=== PATIENT | female | born 1985 ===

== ENCOUNTER 2020-05-12 07:00 | Outpatient (CLI) | payer MEDICAID ==
[2020-05-12 16:35] LABS: BILIRUBIN,URINE NEGATIVE (NEGATIVE); GLUCOSE, URINE (UA) NEGATIVE (NEGATIVE); KETONES,URINE (UA) NEGATIVE (NEGATIVE); LEUKOCYTE ESTERASE, URINE NEGATIVE (NEGATIVE); NITRITE,URINE NEGATIVE (NEGATIVE); OCCULT BLOOD,URINE LARGE (NEGATIVE); PH,URINE 5.5 PH (5.0-7.5); PROTEIN,URINE NEGATIVE (NEGATIVE); UROBILINOGEN,URINE 0.2 (NORMAL) E.U./dL (NORMAL)
[2020-05-12 16:48] LABS: AMORPHOUS SEDIMENT,UR Few /LPF; BACTERIA,URINE Few /HPF (None Seen); CLARITY,URINE CLEAR (CLEAR); MUCUS,URINE Few Strands; SQUAMOUS EPITHELIAL CELL,UR MANY Squamous (<= Few)
[2020-05-12 16:49] LABS: CRYSTALS,URINE 6-10 Calcium Oxalate /LPF
== END 2020-05-12 23:59 | disposition home or self-care (01) ==
LOC: LAB.R 07:00
PROVIDERS: ATTEND Obstetrics & Gynecology
DX: R30.0 Dysuria (principal)
CPT/HCPCS: 81001; 87086

== ENCOUNTER 2020-05-23 15:31 | Outpatient (CLI) | payer MEDICAID ==
[2020-05-23 18:35] LABS: HGB - HEMOGLOBIN 12.2 g/dL (12.0-16.0); MEAN CORPUSCULAR HEMOGLOBIN 28.6 pg (27.0-31.0); MEAN CORPUSCULAR HGB CONC 30.7 g/dL (32.0-36.0); MEAN CORPUSCULAR VOLUME 93.2 fL (81.0-99.0); RED BLOOD COUNT 4.26 10^6/uL (4.20-5.40); RED CELL DISTRIBUTION WIDTH 12.7 % (12.0-15.0); WHITE BLOOD COUNT 6.2 x10^3/uL (4.8-10.8)
[2020-05-23 18:37] LABS: ALBUMIN 4.4 g/dL (3.2-5.5); ALBUMIN/GLOBULIN RATIO 1.7 (1.0-2.2); BILIRUBIN,TOTAL 0.5 mg/dL (0.2-1.0); CALCIUM 9.3 mg/dL (8.5-10.3); CREATININE 0.7 mg/dL (0.4-1.0)
[2020-05-24 12:17] LABS: HEPATITIS B SURFACE ANTIGEN NON-REACTIVE (NON-REACTIVE)
[2020-05-24 12:18] LABS: HEPATITIS C ANTIBODY NON-REACTIVE (NON-REACTIVE)
[2020-05-24 13:22] LABS: HIV AG/AB 4TH GEN NON-REACTIVE (NON-REACTIVE)
== END 2020-05-23 15:32 | disposition home or self-care (01) ==
LOC: LAB.N 15:31
PROVIDERS: ATTEND Obstetrics & Gynecology
DX: R53.81 Other malaise (principal); Z11.3 Encounter for screening for infections with a predominantly sexual mode of transmission
CPT/HCPCS: 36415; 80053; 81599; 82306; 82607; 84443; 85027; 86592; 86803; 87340; 87389

== ENCOUNTER 2020-05-26 16:29 | Emergency (ER) | payer MEDICAID ==
[2020-05-26 17:05] LABS: BILIRUBIN,URINE NEGATIVE (NEGATIVE); GLUCOSE, URINE (UA) NEGATIVE (NEGATIVE); KETONES,URINE (UA) NEGATIVE (NEGATIVE); LEUKOCYTE ESTERASE, URINE NEGATIVE (NEGATIVE); NITRITE,URINE NEGATIVE (NEGATIVE); OCCULT BLOOD,URINE MODERATE (NEGATIVE); PH,URINE 5.5 PH (5.0-7.5); PROTEIN,URINE TRACE mg/dL (NEGATIVE); UROBILINOGEN,URINE 0.2 (NORMAL) E.U./dL (NORMAL)
[2020-05-26 17:06] LABS: BASOPHILS # (AUTO) 0.1 10^3/uL (0.0-0.1); BASOPHILS % (AUTO) 0.3 %; EOSINOPHILS % (AUTO) 0.1 %; HGB - HEMOGLOBIN 13.4 g/dL (12.0-16.0); LYMPHOCYTES # (AUTO) 0.5 10^3/uL (1.5-3.5); LYMPHOCYTES % (AUTO) 2.4 %; MEAN CORPUSCULAR HEMOGLOBIN 28.6 pg (27.0-31.0); MEAN CORPUSCULAR HGB CONC 31.5 g/dL (32.0-36.0); MEAN CORPUSCULAR VOLUME 90.8 fL (81.0-99.0); MEAN PLATELET VOLUME 10.4 fL (7.9-10.8); MONOCYTES # (AUTO) 0.8 10^3/uL (0.0-1.0); MONOCYTES % (AUTO) 3.9 %; NEUTROPHILS # (AUTO) 18.3 10^3/uL (1.5-6.6); PLT - PLATELET COUNT 322 10^3/uL (130-450); RED BLOOD COUNT 4.69 10^6/uL (4.20-5.40); RED CELL DISTRIBUTION WIDTH 12.3 % (12.0-15.0); WHITE BLOOD COUNT 19.7 x10^3/uL (4.8-10.8)
[2020-05-26 17:07] LABS: HCG UR QUAL NEGATIVE
[2020-05-26] MEDS ORDERED: LOPERAMIDE 2 MG CAPSULE PO STA (17:07)
[2020-05-26] MEDS ORDERED: HYDROmorphone 1 MG/ML CARPUJECT IVP STA (17:07)
[2020-05-26] MEDS ORDERED: SODIUM CHLORIDE 0.9% 1,000 ML IV STA (17:07)
[2020-05-26] MEDS ORDERED: ONDANSETRON 4 MG/2 ML VIAL IVP STA (17:07)
[2020-05-26 17:08] LABS: CLARITY,URINE CLOUDY (CLEAR)
--- NOTE | 2020-05-26 17:08 | ED Physician Documentation ---
PD HPI ABD PAIN - Stated complaint Stated Complaint: NAUSEA, DIARRHEA, VOMITING - Chief complaint Chief Complaint: Abd Pain - History obtained from History obtained from: Patient - Additional information Additional information: 35yo woman who had what sounds like colitis about a year ago treated conservatively. Lost to follow-up and never had a colonoscopy. 5 days ago started amoxicillin and around the same time took Plan B after sexual activity during ovulation. Over the last day or 2 has developed profuse bloody diarrhea with lower abdominal pain. No fevers but she has had chills. Review of Systems Ten Systems: 10 systems reviewed and negative Constitutional: reports: Chills Ears: reports: Reviewed and negative Throat: reports: Reviewed and negative GI: reports: Abdominal Pain, Nausea, Diarrhea, Bloody / black stool PD PAST MEDICAL HISTORY - Present Medications Home Medications: Ambulatory Orders Medication Instructions Recorded Confirmed Dicyclomine [Bentyl] 1 - 2 tab PO QID PRN #20 capsule 05/26/20 HYDROcod/ACETAM 5/325 [[place] 5/325] 1 - 2 tab PO Q6H PRN #7 tablet 05/26/20 Ondansetron Odt [Zofran] 4 mg TL Q6H PRN #10 tablet 05/26/20 Vancomycin [Vancocin] 250 mg PO QID #80 capsule 05/26/20 - Allergies Allergies/Adverse Reactions: Allergies Allergy/AdvReac Type Severity Reaction Status Date / Time amoxicillin AdvReac Emesis Verified 05/26/20 16:45 PD ED PE NORMAL - Vitals Vital signs reviewed: Yes - General General: Alert and oriented X 3, No acute distress - HEENT HEENT: PERRL, EOMI - Neck Neck: Supple, no meningeal sign, No bony TTP - Cardiac Cardiac: RRR, No murmur - Respiratory Respiratory: No respiratory distress, Clear bilaterally - Abdomen Abdomen: Normal bowel sounds, Soft, Non tender - Back Back: No CVA TTP, No spinal TTP - Derm Derm: Normal color, Warm and dry - Extremities Extremities: No edema, No calf tenderness / cord - Neuro Neuro: Alert and oriented X 3, Normal speech Results - Vitals Vitals: Vital Signs - 24 hr 05/26/20 05/26/20 16:36 19:54 Temperature 36.3 C L Heart Rate 114 H 90 Respiratory 17 18 Rate Blood Pressure 140/76 H 137/78 H O2 Saturation 100 100 Oxygen O2 Source Room air - Labs Labs: Microbiology 05/26/20 16:50 Occult Blood - Final Stool Laboratory Tests 05/26/20 05/26/20 05/26/20 16:50 16:50 17:01 WBC 19.7 H RBC 4.69 Hgb 13.4 Hct 42.6 MCV 90.8 MCH 28.6 MCHC 31.5 L RDW 12.3 Plt Count 322 MPV 10.4 Neut # (Auto) 18.3 H Lymph # (Auto) 0.5 L Page # (Auto) 0.8 Eos # (Auto) 0.0 Baso # (Auto) 0.1 Absolute Nucleated RBC 0.00 Nucleated RBC % 0.0 Sodium Potassium Chloride Carbon Dioxide Anion Gap BUN Creatinine Estimated GFR (MDRD) Glucose Calcium Total Bilirubin AST ALT Alkaline Phosphatase Total Protein Albumin Globulin Albumin/Globulin Ratio Lipase Urine Color YELLOW Urine Clarity CLOUDY Urine pH 5.5 Ur Specific [place] >=1.030 H Urine Protein TRACE Urine Glucose (UA) NEGATIVE Urine Ketones NEGATIVE Urine Occult Blood MODERATE H Urine Nitrite NEGATIVE Urine Bilirubin NEGATIVE Urine Urobilinogen 0.2 (NORMAL) Ur Leukocyte Esterase NEGATIVE Urine RBC 6-10 H Urine WBC 0-3 Ur Squamous Epith Cells MOD Squamous H Amorphous Sediment Moderate Urine Bacteria Moderate H Ur Microscopic Review INDICATED Urine Culture Comments NOT INDICATED Urine HCG, Qual NEGATIVE Stl C. diff Tox B Gene POSITIVE A* 05/26/20 17:01 WBC RBC Hgb Hct MCV MCH MCHC RDW Plt Count MPV Neut # (Auto) Lymph # (Auto) Page # (Auto) Eos # (Auto) Baso # (Auto) Absolute Nucleated RBC Nucleated RBC % Sodium 135 Potassium 3.5 Chloride 100 L Carbon Dioxide 21 Anion Gap 14.0 H BUN 6 Creatinine 0.8 Estimated GFR (MDRD) 83 L Glucose 130 H Calcium 9.2 Total Bilirubin 0.8 AST 27 ALT 17 Alkaline Phosphatase 39 L Total Protein 7.5 Albumin 4.4 Globulin 3.1 Albumin/Globulin Ratio 1.4 Lipase 80 H Urine Color Urine Clarity Urine pH Ur Specific [place] Urine Protein Urine Glucose (UA) Urine Ketones Urine Occult Blood Urine Nitrite Urine Bilirubin Urine Urobilinogen Ur Leukocyte Esterase Urine RBC Urine WBC Ur Squamous Epith Cells Amorphous Sediment Urine Bacteria Ur Microscopic Review Urine Culture Comments Urine HCG, Qual Stl C. diff Tox B Gene - Rads (name of study) CT A/P Radiology: EMP read contemporaneously (Pancolitis, R ovarian cyst) PD MEDICAL DECISION MAKING - ED course ED course: 35-year-old woman with Bloody diarrhea. Found to be positive for C. difficile and will be treated with oral vancomycin. She really needed a few painkillers but discussed with her that there you should be minimized given the diagnosis and the fact that we do not want to slow bowel motility too much. Departure - Departure Disposition: 01 Home, Self Care Clinical Impression: C. difficile colitis Condition: Good Record reviewed to determine appropriate education?: Yes Instructions: Clostridium Difficile Infec Prescriptions: Dicyclomine [Bentyl] 1 - 2 tab PO QID PRN #20 capsule PRN Reason: Abdominal Pain HYDROcod/ACETAM 5/325 [[place] 5/325] 1 - 2 tab PO Q6H PRN #7 tablet PRN Reason: Pain Vancomycin [Vancocin] 250 mg PO QID #80 capsule Ondansetron Odt [Zofran] 4 mg TL Q6H PRN #10 tablet PRN Reason: Nausea / Vomiting Comments: Seen today for colonic infection caused by C. difficile. Stop the amoxicillin. Vancomycin should take care of it. Follow-up with your primary care physician, next available appointment. Return if worse.
[2020-05-26 17:13] LABS: AMORPHOUS SEDIMENT,UR Moderate /LPF; BACTERIA,URINE Moderate /HPF (None Seen); SQUAMOUS EPITHELIAL CELL,UR MOD Squamous (<= Few)
[2020-05-26 17:18] LABS: ALBUMIN 4.4 g/dL (3.2-5.5); ALBUMIN/GLOBULIN RATIO 1.4 (1.0-2.2); BILIRUBIN,TOTAL 0.8 mg/dL (0.2-1.0); CALCIUM 9.2 mg/dL (8.5-10.3); CREATININE 0.8 mg/dL (0.4-1.0); TOTAL PROTEIN 7.5 g/dL (6.7-8.2)
[2020-05-26] MEDS ORDERED: IOVERSOL 320 100 ML VIAL IVP ONE (18:40)
--- NOTE | 2020-05-26 19:33 | CT Report ---
PROCEDURE: Abdomen/Pelvis W INDICATIONS: IV only, low abd pain CONTRAST: IV CONTRAST: Optiray 320 ml: 100 PO CONTRAST: *NO PO CONTRAST TECHNIQUE: After the administration of IV contrast, 5 mm thick sections acquired from the diaphragms to the symp hysis. 5 mm thick coronal and sagittal reformats were acquired. For radiation dose reduction, the f ollowing was used: automated exposure control, adjustment of mA and/or kV according to patient size. COMPARISON: None. FINDINGS: Image quality: Excellent. ABDOMEN: Lung bases: Lung bases are clear. Heart size is normal. Solid organs: Liver and spleen are normal in size and enhancement. Gallbladder is within normal berg its Biliary system is non dilated. Pancreas enhances normally. No adrenal nodules. Kidneys demons trate normal size and enhancement, without hydronephrosis. Peritoneum and bowel: There is no bowel obstruction. No gastric or small bowel wall thickening. Diffu se colonic wall thickening and edema is seen with narrowing of the lumen and mild pericolonic fat str anding suggestive of infectious or inflammatory colitis. Appendix is visualized and is within normal limits. No free fluid or free air. No abscess collection. Nodes and vessels: No retroperitoneal or mesenteric adenopathy by size criteria. Aorta and inferior vena cava are normal in size. Miscellaneous: No ventral hernias. PELVIS: Genitourinary: Bladder wall thickness is normal. Miscellaneous: No inguinal hernias or adenopathy. 2.5 x 1.9 cm cystic structure in right adnexa is noted. Bones: No suspicious bony lesions. No vertebral body compression fractures. IMPRESSION: 1. Finding is suggestive of pancolitis. No bowel obstruction. No abscess collection. Normal appendix. No free fluid or free air. 2. Suggestion of right ovarian cyst as above. Reviewed by: Silvio Merdia MD on 05/26/2020 7:32 PM PST Approved by: Silvio Merida MD on 05/26/2020 7:32 PM PST Station ID: [id number]
[2020-05-26] MEDS ORDERED: VANCOMYCIN 125 MG CAPSULE PO STA (19:43)
[2020-05-26] MEDS ORDERED: HYDROcod/ACET 5/325 Prepack 4 PO STA (19:43)
[2020-05-26 19:55] VITALS: BP 137/78
[2020-05-26] MEDS ORDERED: ONDANSETRON ODT 4 MG Prepack 2 TL STA (20:10)
[2020-05-27] MEDS ORDERED: IOVERSOL 320 100 ML VIAL IVP ONE (09:28)
== END 2020-05-26 20:20 | disposition home or self-care (01) ==
LOC: ED 16:29
DX: A04.72 Enterocolitis due to Clostridium difficile, not specified as recurrent (principal)
CPT/HCPCS: 36415; 74177; 80053; 81001; 81025; 81599; 82272; 83690; 85025; 87493; 96374; 99284; A9270; J1170; J8499; Q9967; 81003; 87045; 87046; 87086

== ENCOUNTER 2020-06-28 08:38 | Outpatient (CLI) | payer MEDICAID | END 2020-06-28 23:59 | LOC: LAB.N 08:38 | PROVIDERS: ATTEND Family Medicine | DX: A04.72 Enterocolitis due to Clostridium difficile, not specified as recurrent (principal) | CPT/HCPCS: 87493 ==

== ENCOUNTER 2020-06-29 10:29 | Emergency (ER) | payer MEDICAID ==
[2020-06-29 11:25] LABS: BASOPHILS # (AUTO) 0.1 10^3/uL (0.0-0.1); BASOPHILS % (AUTO) 0.6 %; EOSINOPHILS % (AUTO) 0.4 %; HGB - HEMOGLOBIN 12.5 g/dL (12.0-16.0); LYMPHOCYTES # (AUTO) 0.8 10^3/uL (1.5-3.5); LYMPHOCYTES % (AUTO) 9.3 %; MEAN CORPUSCULAR HEMOGLOBIN 28.8 pg (27.0-31.0); MEAN CORPUSCULAR HGB CONC 31.8 g/dL (32.0-36.0); MEAN CORPUSCULAR VOLUME 90.6 fL (81.0-99.0); MEAN PLATELET VOLUME 10.3 fL (7.9-10.8); MONOCYTES # (AUTO) 0.6 10^3/uL (0.0-1.0); MONOCYTES % (AUTO) 6.8 %; NEUTROPHILS # (AUTO) 6.8 10^3/uL (1.5-6.6); NEUTROPHILS % (AUTO) 82.5 %; PLT - PLATELET COUNT 368 10^3/uL (130-450); RED BLOOD COUNT 4.34 10^6/uL (4.20-5.40); RED CELL DISTRIBUTION WIDTH 11.9 % (12.0-15.0); WHITE BLOOD COUNT 8.2 x10^3/uL (4.8-10.8)
[2020-06-29 11:39] LABS: ALBUMIN 4.7 g/dL (3.2-5.5); ALBUMIN/GLOBULIN RATIO 1.6 (1.0-2.2); BILIRUBIN,TOTAL 0.7 mg/dL (0.2-1.0); CREATININE 0.7 mg/dL (0.4-1.0); TOTAL PROTEIN 7.6 g/dL (6.7-8.2)
[2020-06-29 12:17] LABS: BILIRUBIN,URINE NEGATIVE (NEGATIVE); GLUCOSE, URINE (UA) NEGATIVE (NEGATIVE); KETONES,URINE (UA) NEGATIVE (NEGATIVE); LEUKOCYTE ESTERASE, URINE TRACE (NEGATIVE); NITRITE,URINE NEGATIVE (NEGATIVE); OCCULT BLOOD,URINE LARGE (NEGATIVE); PH,URINE 6.5 PH (5.0-7.5); PROTEIN,URINE 100 mg/dL (NEGATIVE); UROBILINOGEN,URINE 0.2 (NORMAL) E.U./dL (NORMAL)
[2020-06-29 12:20] LABS: CLARITY,URINE TURBID (CLEAR); HCG UR QUAL NEGATIVE
[2020-06-29 12:21] LABS: BACTERIA,URINE Rare /HPF (None Seen); RBC,URINE TNTC /HPF (0-5); SQUAMOUS EPITHELIAL CELL,UR FEW Squamous (<= Few)
[2020-06-29] MEDS ORDERED: SODIUM CHLORIDE 0.9% 1,000 ML IV STA (12:24)
[2020-06-29] MEDS ORDERED: VANCOMYCIN INJ 1 GM in SODIUM CHLORIDE 0.9% 500 ML IV STA (12:24)
--- NOTE | 2020-06-29 12:25 | ED Physician Documentation ---
PD HPI NVD - Stated complaint Stated Complaint: DIARRHEA,NAUSEA - Chief complaint Chief Complaint: Abd Pain - History obtained from History obtained from: Patient - History of Present Illness Timing - onset: How many days ago (4) Timing - duration: Days (4) Timing - details: Gradual onset, Still present Associated symptoms: Abdominal pain, Dizzy, Loss of appetite Contributing factors: Sick contact (boyfriend and children in the house do not wash their hands.) Improved by: BM Worsened by: Eating Similar symptoms before: Diagnosis (C.Diff colitis) Recently seen: Clinic - Additonal information Additional information: 35-year-old female had C. difficile colitis back in May she took a course of oral vancomycin and her symptoms improved dramatically. She has been seen at the clinic she had some return of symptoms and at that time had a hard stool and she subsequently is able to provide a specimen and this again turned out positive for C. difficile. She has now developed watery diarrhea she does not have blood in the diarrhea but she has been able to submit a sample and she reports this was + for C. diff and she has been instructed to come to the ED for hydration and IV vancomycin. Review of Systems Constitutional: denies: Fever Eyes: denies: Photophobia Ears: denies: Ear pain Nose: denies: Rhinorrhea / runny nose, Congestion Throat: reports: Dental pain / toothache Cardiac: denies: Palpitations Respiratory: denies: Dyspnea, Cough GI: reports: Abdominal Pain, Nausea, Diarrhea : denies: Dysuria, Frequency, Hesitancy Skin: denies: Rash Musculoskeletal: denies: Neck pain, Back pain, Extremity pain Neurologic: denies: Generalized weakness, Focal weakness, Numbness PD PAST MEDICAL HISTORY - Past Medical History GI: Other - Present Medications Home Medications: Ambulatory Orders Medication Instructions Recorded Confirmed Dicyclomine [Bentyl] 1 - 2 tab PO QID PRN #20 capsule 05/26/20 HYDROcod/ACETAM 5/325 [[place] 5/325] 1 - 2 tab PO Q6H PRN #7 tablet 05/26/20 Ondansetron Odt [Zofran] 4 mg TL Q6H PRN #10 tablet 05/26/20 Vancomycin [Vancocin] 250 mg PO QID #80 capsule 05/26/20 Dicyclomine [Bentyl] 10 - 20 mg PO ONCE PRN #20 capsule 06/29/20 Ondansetron Odt [Zofran] 4 mg TL Q6H PRN #10 tablet 06/29/20 Vancomycin [Vancocin] 250 mg PO QID #80 capsule 06/29/20 - Allergies Allergies/Adverse Reactions: Allergies Allergy/AdvReac Type Severity Reaction Status Date / Time amoxicillin AdvReac Emesis Verified 05/26/20 16:45 - Social History Does the pt smoke?: No Smoking Status: Never smoker PD ED PE NORMAL - Vitals Vital signs reviewed: Yes (tachy and hypertensive ) - General General: Alert and oriented X 3, No acute distress, Well developed/nourished - HEENT HEENT: Atraumatic, PERRL, EOMI, Other (There is a molar on the right upper with a hole in it. A source of pain for the patient and this is covered with CAVIT) - Neck Neck: Supple, no meningeal sign, No bony TTP - Cardiac Cardiac: No murmur, Other (tachy to 110) - Respiratory Respiratory: No respiratory distress, Clear bilaterally - Abdomen Abdomen: Normal bowel sounds, Soft, Non distended, No organomegaly, Other (mild general tenderness without garding or rebound no specific tenderness ) - Back Back: No CVA TTP, No spinal TTP - Derm Derm: Normal color, Warm and dry, No rash - Extremities Extremities: No deformity, No edema - Neuro Neuro: Alert and oriented X 3, clinical assoc 2-12 intact, No motor deficit, No sensory deficit, Normal speech Eye Opening: Spontaneous Motor: Obeys Commands Verbal: Oriented GCS Score: 15 - Psych Psych: Normal mood, Normal affect Results - Vitals Vitals: Vital Signs - 24 hr 06/29/20 06/29/20 10:43 12:21 Temperature 37.0 C 36.8 C Heart Rate 111 H 98 Respiratory 16 16 Rate Blood Pressure 144/97 H 140/90 H O2 Saturation 98 100 Oxygen O2 Source Room air - Labs Labs: Laboratory Tests 06/29/20 06/29/20 06/29/20 11:21 11:21 11:57 WBC 8.2 RBC 4.34 Hgb 12.5 Hct 39.3 MCV 90.6 MCH 28.8 MCHC 31.8 L RDW 11.9 L Plt Count 368 MPV 10.3 Neut # (Auto) 6.8 H Lymph # (Auto) 0.8 L [place] # (Auto) 0.6 Eos # (Auto) 0.0 Baso # (Auto) 0.1 Absolute Nucleated RBC 0.00 Nucleated RBC % 0.0 Sodium 133 L Potassium 3.7 Chloride 100 L Carbon Dioxide 23 Anion Gap 10.0 BUN 10 Creatinine 0.7 Estimated GFR (MDRD) 96 Glucose 109 H Calcium 9.0 Total Bilirubin 0.7 AST 18 ALT 13 Alkaline Phosphatase 40 L Total Protein 7.6 Albumin 4.7 Globulin 2.9 Albumin/Globulin Ratio 1.6 Lipase 50 Urine Color RED/BLOODY Urine Clarity TURBID Urine pH 6.5 Ur Specific [place] 1.015 Urine Protein 100 H Urine Glucose (UA) NEGATIVE Urine Ketones NEGATIVE Urine Occult Blood LARGE H Urine Nitrite NEGATIVE Urine Bilirubin NEGATIVE Urine Urobilinogen 0.2 (NORMAL) Ur Leukocyte Esterase TRACE H Urine RBC TNTC H Urine WBC 0-3 Ur Squamous Epith Cells FEW Squamous Urine Bacteria Rare Ur Microscopic Review INDICATED Urine Culture Comments INDICATED Urine HCG, Qual NEGATIVE Procedures - IVC sono (time) 1220 Bedside IVC sono: IVC measures (cm) (0.88), Dehydration (est 2 liter deficit) PD MEDICAL DECISION MAKING - ED course Complexity details: reviewed old records, reviewed results, re-evaluated patient, considered differential, d/w patient ED course: 35-year-old female with a prior history of C. difficile colitis is developed C. difficile colitis again with diarrhea without blood in at this time and abdominal cramping.And she does not have any Zofran at home. He can off of her dicyclomine she indicates that she was sent to the emergency department by her primary care doctor for intravenous vancomycin. She did receive a dose of intravenous vancomycin we will put her back on oral vancomycin will give her back the base dicyclomine and refill the Zofran as well. Departure - Departure Disposition: 01 Home, Self Care Clinical Impression: C. difficile colitis, Dehydration Condition: Stable Instructions: Clostridium Difficile Infec, ED Dehydration Prescriptions: Dicyclomine [Bentyl] 10 - 20 mg PO ONCE PRN #20 capsule PRN Reason: cramping Vancomycin [Vancocin] 250 mg PO QID #80 capsule Ondansetron Odt [Zofran] 4 mg TL Q6H PRN #10 tablet PRN Reason: Nausea / Vomiting
[2020-06-29] MEDS ORDERED: SODIUM CHLORIDE 0.9% IV STA ×3 (12:32)
[2020-06-29] MEDS ORDERED: VANCOMYCIN 1500 MG IV STA ×3 (12:32)
[2020-06-29] MEDS ORDERED: KETOROLAC 30 MG/ML VIAL IVP STA (13:50)
[2020-06-29] MEDS ORDERED: hydrOXYzine PAMOATE 25 MG CAPSULE PO STA (14:50)
[2020-06-29 15:36] VITALS: BP 136/86
== END 2020-06-29 15:40 | disposition home or self-care (01) ==
LOC: ED 10:29
DX: A04.72 Enterocolitis due to Clostridium difficile, not specified as recurrent (principal); E86.0 Dehydration; K08.89 Other specified disorders of teeth and supporting structures
CPT/HCPCS: 36415; 80053; 81001; 81025; 83690; 85025; 87086; 96365; 96366; 96375; 99283; 99284; A9270; J3370; 81003

== ENCOUNTER 2020-08-24 08:00 | Outpatient (CLI) | payer MEDICAID ==
[2020-08-25 00:09] LABS: CHLAMYDIA TRACHOMATIS DNA NEGATIVE (NEGATIVE); NEISSERIA GONORRHOEAE DNA NEGATIVE (NEGATIVE); TRICHOMONAS VAGINALIS DNA NEGATIVE (NEGATIVE)
== END 2020-08-24 23:59 | disposition home or self-care (01) ==
LOC: LAB.R 08:00
PROVIDERS: ATTEND Nurse Practitioner
DX: J02.9 Acute pharyngitis, unspecified (principal)
CPT/HCPCS: 87070; 87491; 87591; 87661